=== PATIENT | female | born 1990 | race Caucasian/White ===

== ENCOUNTER → 2021-03-06 08:47 | Outpatient (CLI) | payer OTHER, SELFPAY ==
[2021-03-06 19:19] LABS: SARS-CoV-2 RNA PCR Negative
== END ==
PROVIDERS: PCP Nurse Practitioner Adult Health; Visit Provider Family Medicine
DX: R51.9 Headache, unspecified (principal); Z20.822 Contact with and (suspected) exposure to COVID-19
CPT/HCPCS: C9803; U0003; U0005

== ENCOUNTER → 2021-09-01 04:11 | Outpatient (CLI) | payer OTHER, SELFPAY ==
[2021-09-01 17:23] LABS: SARS-CoV-2 RNA PCR Negative
== END ==
PROVIDERS: PCP Nurse Practitioner Adult Health; Visit Provider Nurse Practitioner Adult Health
DX: R09.81 Nasal congestion (principal); Z20.822 Contact with and (suspected) exposure to COVID-19
CPT/HCPCS: C9803; U0003; U0005

== ENCOUNTER → 2021-09-12 09:46 | Outpatient (REF) | payer OTHER, SELFPAY | LOC: ANHLAB 09:46 | PROVIDERS: PCP Nurse Practitioner Adult Health; Visit Provider Nurse Practitioner | DX: D22.4 Melanocytic nevi of scalp and neck (principal) | CPT/HCPCS: 88305 ==

== ENCOUNTER 2021-09-20 22:02 | Emergency (ER) | payer OTHER, SELFPAY ==
[2021-09-20 22:05] VITALS: BP 126/80; PULSE 145; RESP 17; TEMP 37.1; O2SAT 99
--- NOTE | 2021-09-20 22:09 | PC.NURSE ---
Poison control called at this time. Viridiana, pharmacist on phone. Patient reports she took 6 - 0.5mg xanax pills approx 1 hour ago. Viridiana informed that ETOH is also known to be in patients system. Per pharmacist, her toxic dose would be 7.3mg. Pharmacist says to look for ataxia, slurred speech, mild hypotension, respiratory depression, INSTRUCTIONAL SPECIALIST depression. Pharmacist suggests symptomatic supportive care.
[2021-09-20 22:19] VITALS: RESP 14
--- NOTE | 2021-09-20 22:47 | ECG_ITS ---
Measurements Intervals [place] Rate: 111 P: 42 MO: 137 QRS: -22 QRSD: 90 T: 9 QT: 323 QTc: 439 Interpretive Statements SINUS TACHYCARDIA INCOMPLETE RIGHT BUNDLE BRANCH BLOCK BASELINE ARTIFACT- II, III, AVR, AVF, V3-V6 ABNORMAL ECG Electronically Signed On 09-21-2021 7:36:35 [employer] by Richard Carey D.O.
--- NOTE | 2021-09-20 22:55 | PC.NURSE ---
Pt's aunt took bottle of Xanax to take home.
[2021-09-20] MEDS: SODIUM CHLORIDE 0.9% IV 1,000 ML 999 ML IV CONT (22:57)
[2021-09-20 22:58] LABS: Basophils Percent Auto 0.3 % (0.2-1.2); Eosinophils Percent Auto 0.3 % (0-4.4); Hematocrit 40.4 % (37.0-47.0); Hemoglobin 14.3 g/dL (12.0-15.0); Immature Granulocyte Absolute 0.03 K/mm3 (0.00-0.031); Immature Granulocyte Percent A 0.3 % (0-0.5); Lymphocytes Percent Auto 8.4 % (18.3-44.2); Mean Corpuscular HGB Conc 35.4 g/dl (32-36); Mean Corpuscular Hemoglobin 32.1 pg (26-34); Mean Corpuscular Volume 90.6 fl (80-100); Mean Platelet Volume 9.6 fl (7.4-10.4); Monocytes Absolute Auto 0.5 K/mm3 (0.1-0.6); Monocytes Percent Auto 4.5 % (2.6-8.5); Neutrophils Absolute Auto 10.3 K/mm3 (1.3-6.7); Neutrophils Percent Auto 86.2 % (45.5-73.1); Platelet Count Result 266 k/mm3 (150-375); Red Blood Count 4.46 M/mm3 (4.2-5.4); Red Cell Distribution Width 12.1 % (11.5-14.5); White Blood Count 11.9 K/mm3 (4.5-10.0)
--- NOTE | 2021-09-20 23:05 | ED.OVERDOSE ---
HPI - Overdose General Chief Complaint: Overdose Stated Complaint: etoh Time Seen by Provider: 09/20/21 22:30 Source: patient and RN notes reviewed Mode of arrival: EMS Limitations: no limitations History of Present Illness HPI Narrative: This is a 31 year old female with history of anxiety who presents for evaluation of possible overdose. Patient reports she went drinking with coworkers at 1 pm this afternoon, and she only drank 2 margaritas. She states she was stopped by the police in [place] and they called her family to come get her. She states she does not know how she get from [place] to [place] today. She was brought to [facility] because patient took 3 mg of Xanax prior to arrival. She states she did not take 3 mg Xanax to kill herself, but she took it to calm herself. She states she asked to come to [facility] because she is tired and doesn't want to do this. She states she does not think she could commit suicide. She has history of cutting and an eating disorder. Related Data Home Medications Medication Instructions Recorded Confirmed alprazolam 0.5 mg tablet 0.5 mg PO BID tablet 09/12/21 fluoxetine 20 mg capsule 20 mg PO DAILY cap 09/12/21 linaclotide 290 mcg capsule 290 mcg PO DAILY cap 09/12/21 norgestimate-ethinyl estradiol 1 tablet PO DAILY tablet 09/12/21 0.18 mg/0.215mg/0.25mg-35 mcg(28)tablet Allergies Allergy/AdvReac Type Severity Reaction Status Date / Time procaine Allergy Severe LOC Verified 09/20/21 22:17 cefaclor Allergy Unknown Hives Verified 09/20/21 22:17 Review of Systems Review of Systems: All systems reviewed & are unremarkable except as noted in HPI and below PMFSH Past Medical History Medical History (Updated 09/21/21 @ 05:38 by Renetta Hurtado MD) Anxiety Skin neoplasm Surgical History Surgical History (Updated 09/20/21 @ 23:11 by Renetta Hurtado MD) H/O local excision of skin lesion Social History Social History (Updated 09/20/21 @ 23:12 by Renetta Hurtado MD) Smoking status: Never smoker Alcohol intake: current Alcohol use details: she states she normally does not drink alcohol. Substance use: never Substance use type: does not use Exam Const: General: alert Nutritional Appearance: thin Orientation/consciousness: patient oriented x3 HENMT: Head: normocephalic and atraumatic Mouth: Yes Normal oral and palatal mucosa present, Yes lip normal, Yes oropharynx normal and Yes moist mucous membranes Eyes: EOM: EOMs intact bilaterally Resp: Effort & Inspection: normal respiratory effort and no retractions Auscultation: clear to auscultation bilaterally Cardio: Rate: tachycardic Rhythm: regular rhythm Heart sounds: no murmurs GI: GI Palp: Yes Soft to palpation, No Tenderness to palpation present (GI) and No Guarding due to palpation present (GI) Auscultation: normal bowel sounds Skin: General skin exam: normal color Rashes: no rashes Neuro: General: patient oriented x3, moves all extremities and CN's II-XI intact bilaterally Extrem: General: normal to inspection Psych: Appearance: well kempt Mental Status: mental status grossly normal Attitude: cooperative Course Reevaluation(s) Reevaluation #1: Patient was evaluated by Edwina with Crisis and patient is stable for outpatient treatment and evaluation. She denies suicidal ideation and plan now. She has performed safety contract and she will be placed mason helper list to check on her. Date: 09/21/21 Time: 05:34 Vital Signs Vital signs: Vital Signs Temperature 98.7 F 09/20/21 22:05 Pulse Rate 145 H 09/20/21 22:05 Respiratory Rate 17 09/20/21 22:05 Blood Pressure 126/80 09/20/21 22:05 Pulse Oximetry 99 09/20/21 22:05 Temperature 98.7 F 09/20/21 22:05 Pulse Rate 108 H 09/21/21 05:47 Respiratory Rate 16 09/21/21 05:47 Blood Pressure 127/90 09/21/21 05:47 Pulse Oximetry 100 09/21/21 05:47 MDM - Overdose [place]
[2021-09-20 23:08] LABS: Add Urine Microscopic? NO; Appearance Urine Clear (Clear); Bilirubin Urine Negative (Negative); Blood Urine Negative (Negative); Color Urine Straw (Yellow); Glucose Urine UA Negative (Negative); Ketones Urine Negative (Negative); Leukocyte Esterase Ur Negative LEU/UL (Negative); Nitrate Urine Negative (Negative); Protein Urine Negative (Negative); Specific Grav Ur 1.005 (1.001-1.035); Urobilinogen Urine Negative mg/dL (<2.0)
[2021-09-20 23:08] LABS: Salicylate < 1.0 mg/dL (2-20)
[2021-09-20 23:09] LABS: Acetaminophen < 10 ug/mL (10-30); Alanine Aminotransferase 9 U/L (4-35); Albumin Level 4.1 g/dL (3.5-5.1); Alkaline Phosphatase 40 U/L (38-126); Anion Gap 8 mmol/L (8-16); Aspartate Amino Transferase 15 U/L (14-36); Bilirubin,Total 0.3 mg/dL (0.2-1.3); Blood Urea Nitrogen 4 mg/dL (7-17); Calcium 8.9 mg/dL (8.4-10.2); Carbon Dioxide 25 mmol/L (22-30); Chloride 113 mmol/L (98-107); Estimated CRCL calculation 69 ml/min; Estimated Glomerular Filt Rate > 60; Ethanol 161 mg/dL (<10); Glucose 104 mg/dL (65-110); Potassium 4.1 mmol/L (3.4-5.0); Sodium 146 mmol/L (137-145)
[2021-09-20 23:30] LABS: Amphetamine Screen Urine Negative (Negative); Barbiturate Screen Urine Negative (Negative); Benzodiazepines Screen Urine Positive (Negative); Cannabinoid Screen Urine Negative (Negative); Cocaine Screen Urine Negative (Negative); Methadone Screen Urine Negative (Negative); Opiate Screen Urine Negative (Negative); Phencyclidine Screen Urine Negative (Negative)
[2021-09-20 23:36] VITALS: BP 99/66; PULSE 100; RESP 20; O2SAT 99
[2021-09-20 23:56] VITALS: BP 102/76; PULSE 113; RESP 20; O2SAT 100
[2021-09-21] VITALS (7 sets, daily range): BP systolic 98–128; BP diastolic 62–90; PULSE 101–127; RESP 12–24; O2SAT 97–100
--- NOTE | 2021-09-21 00:21 | PC.NURSE ---
Mother requests to be called when pt wakes up and is less drowsy, or after Crisis evaluation. Xochilt Jiang .
[2021-09-21] MEDS: SODIUM CHLORIDE 0.9% IV 1,000 ML 999 ML IV CONT (00:27)
--- NOTE | 2021-09-21 00:53 | PC.NURSE ---
Per Terri at poison control reports they do not expect any worsening of pt condition and they are closing her case.
--- NOTE | 2021-09-21 01:34 | PC.NURSE ---
Pt belongings in ED locked cabinet, secured and labeled with pt sticker.
--- NOTE | 2021-09-21 03:25 | PC.NURSE ---
Pt mother contacted by phone per pt's request.
[2021-09-21 04:14] LABS: Ethanol 55 mg/dL (<10)
--- NOTE | 2021-09-21 04:21 | PC.NURSE ---
Pt medically cleared per BHUMIKA Hurtado. Called Crisis at [id number], spoke with Levy. tailings worker to be sent to ED for evaluation of patient.
--- NOTE | 2021-09-21 04:26 | PC.NURSE ---
Spoke with Edwina from Crisis, pt will be evaluated around 0500.
== END 2021-09-21 05:47 | disposition home or self-care (01) ==
PROVIDERS: Emergency Provider General Practice; PCP Nurse Practitioner Adult Health
DX: F41.9 Anxiety disorder, unspecified (principal); F10.929 Alcohol use, unspecified with intoxication, unspecified; Z85.828 Personal history of other malignant neoplasm of skin; R00.0 Tachycardia, unspecified; I45.10 Unspecified right bundle-branch block; Y90.6 Blood alcohol level of 120-199 mg/100 ml
CPT/HCPCS: 36415; 80053; 80307; 81003; 81025; 83735; 84443; 85025; 85610; 85730; 93005; 96360; 96361; 99284; J7030

== ENCOUNTER → 2021-10-31 02:25 | Outpatient (CLI) | payer OTHER, SELFPAY ==
[2021-11-01 20:49] LABS: SARS-CoV-2 RNA PCR Positive
== END ==
PROVIDERS: PCP Nurse Practitioner Adult Health; Visit Provider Nurse Practitioner Adult Health
DX: U07.1 COVID-19 (principal)
CPT/HCPCS: C9803; U0003; U0005

== ENCOUNTER 2022-11-01 10:05 | Emergency (ER) | payer OTHER, SELFPAY ==
--- NOTE | ~2022-11-01 | XR_ITS ---
EXAMINATION: XR chest 2V DATE: 11/01/2022 10:59 INDICATION: Chest pain. TECHNIQUE: Frontal and lateral views of the chest were obtained. COMPARISON: Chest 2 views 02/03/2015 FINDINGS: The chest demonstrates clear lungs without pneumonia, pleural effusion, or pneumothorax. Th e heart size is normal. IMPRESSION: 1. No acute cardiopulmonary disease. Reviewed, dictated and finalized at location A. ENCY MACHINE OPERATOR
--- NOTE | 2022-11-01 10:08 | ECG_ITS ---
Measurements Intervals [place] Rate: 78 P: 69 AK: 129 QRS: 85 QRSD: 93 T: 52 QT: 388 QTc: 443 Interpretive Statements SINUS RHYTHM INCOMPLETE RIGHT BUNDLE BRANCH BLOCK BASELINE ARTIFACT- I, II, III, AVR BORDERLINE ECG COMPARED TO ECG 09/20/2021 23:09:02 SINUS RHYTHM NOW PRESENT Electronically Signed On 11-01-2022 12:45:09 SHOE DRESSER by Richard Carey D.O.
[2022-11-01 10:16] VITALS: BP 124/93; PULSE 79; RESP 16; TEMP 36.6; O2SAT 100
[2022-11-01 10:44] LABS: Basophils Percent Auto 0.6 % (0.2-1.2); Eosinophils Percent Auto 0.6 % (0-4.4); Hematocrit 38.7 % (37.0-47.0); Hemoglobin 13.1 g/dL (12.0-15.0); Immature Granulocyte Absolute 0.01 K/mm3 (0.00-0.031); Immature Granulocyte Percent A 0.2 % (0-0.5); Lymphocytes Absolute Auto 0.85 K/mm3 (0.9-3.2); Lymphocytes Percent Auto 15.6 % (18.3-44.2); Mean Corpuscular HGB Conc 33.9 g/dl (32-36); Mean Corpuscular Hemoglobin 30.8 pg (26-34); Mean Corpuscular Volume 90.8 fl (80-100); Mean Platelet Volume 9.1 fl (7.4-10.4); Monocytes Absolute Auto 0.3 K/mm3 (0.1-0.6); Monocytes Percent Auto 5.3 % (2.6-8.5); Neutrophils Absolute Auto 4.2 K/mm3 (1.3-6.7); Neutrophils Percent Auto 77.7 % (45.5-73.1); Platelet Count Result 211 k/mm3 (150-375); Red Blood Count 4.26 M/mm3 (4.2-5.4); Red Cell Distribution Width 11.8 % (11.5-14.5); White Blood Count 5.5 K/mm3 (4.5-10.0)
[2022-11-01 10:54] LABS: Alanine Aminotransferase 12 U/L (6-35); Albumin Level 4.2 g/dL (3.5-5.1); Alkaline Phosphatase 38 U/L (38-126); Anion Gap 4 mmol/L (8-16); Aspartate Amino Transferase 19 U/L (14-36); Bilirubin,Total 0.6 mg/dL (0.2-1.3); Blood Urea Nitrogen 7 mg/dL (7-17); Calcium 8.7 mg/dL (8.4-10.2); Carbon Dioxide 27 mmol/L (22-30); Chloride 99 mmol/L (98-107); Estimated CRCL calculation 69 ml/min; Estimated Glomerular Filt Rate > 60; Glucose 83 mg/dL (65-110); Lipase 51 U/L (23-300); Potassium 3.5 mmol/L (3.4-5.0); Sodium 130 mmol/L (137-145)
[2022-11-01 10:56] LABS: INR 1.1; Prothrombin Time 13.6 Seconds (11.1-14.7)
[2022-11-01 10:57] LABS: Partial Thromboplastin Time 27.7 SECONDS (22.3-36.8)
[2022-11-01 11:06] LABS: Troponin I < 0.012 ng/mL (0.000-0.034)
[2022-11-01 13:04] VITALS: BP 123/81; PULSE 64; RESP 18; TEMP 36.1; O2SAT 99
[2022-11-01 13:42] LABS: Troponin I < 0.012 ng/mL (0.000-0.034)
--- NOTE | 2022-11-01 14:17 | ED.CHESTPAIN ---
HPI - Chest Pain General Chief Complaint: Chest Pain Stated Complaint: chest pain for a week Time Seen by Provider: 11/01/22 14:16 Source: patient Mode of arrival: ambulatory Limitations: no limitations History of Present Illness HPI narrative: Patient is a 32 yo female with a history of anxiety presenting to the ER for evaluation of chest pain. Patient reports pain is a soreness overlying the middle of the chest. Pain has been present for a week. Rated moderate in severity. Patient has been taking ibuprofen without improvement. Patient with family member who had bronchitis recently, no other sick contacts. She denies fever, chills, nausea, vomiting or diarrhea. She reports intermittent headache and nausea. Pt denies focal weakness or numbness. Pt denies dyspnea, lightheadedness. No syncope. Related Data Home Medications Medication Instructions Recorded Confirmed alprazolam 0.5 mg tablet 0.5 mg PO BID 09/12/21 fluoxetine 20 mg capsule 20 mg PO DAILY 09/12/21 linaclotide 290 mcg capsule 290 mcg PO DAILY 09/12/21 norgestimate-ethinyl estradiol 1 tablet PO DAILY 09/12/21 0.18 mg/0.215mg/0.25mg-35 mcg(28)tablet Allergies Allergy/AdvReac Type Severity Reaction Status Date / Time procaine Allergy Severe LOC Verified 09/20/21 22:17 cefaclor Allergy Unknown Hives Verified 09/20/21 22:17 Review of Systems Review of Systems: CONSTITUTIONAL: Denies fever, chills, or sweats. EYES: Denies visual changes, redness, or discharge. ENT: Denies rhinorrhea, congestion, sore throat, or otalgia. CARDIOVASCULAR: Reports chest pain without palpitations RESPIRATORY: Denies cough or dyspnea. GASTROINTESTINAL: Denies abdominal pain, nausea, vomiting, or diarrhea. GENITOURINARY: Denies dysuria or hematuria. SKIN: Denies rash or itching. MUSCULOSKELETAL: Denies back pain, joint pain, or myalgia. NEUROLOGIC: Denies headache, numbness, or weakness. PSYCHIATRIC: Patient with history of anxiety COUNT INCLUDES THE [facility] Past Medical History Medical History Anxiety Skin neoplasm Surgical History Surgical History H/O local excision of skin lesion Social History Social History Smoking status: Never smoker Alcohol intake: current Alcohol use details: she states she normally does not drink alcohol. Substance use: never Substance use type: does not use Exam Narrative: GENERAL: Awake, alert, conversant HEAD: Normocephalic, atraumatic. EYES: PERRLA and EOMI. ENT: Nares clear, no rhinorrhea or epistaxis. Mucous membranes moist. NECK: Supple. CHEST: No respiratory distress, breathing even and non labored; pt with reproducible tenderness, no crepitus or ecchymoses HEART: Regular rate, sinus rhythm ABDOMEN:Non distended, non tender EXTREMITIES: Normal range of motion. No edema. SKIN: Warm, dry, no rash. NEURO:No focal deficits. Alert and oriented x3 Course Vital Signs Vital signs: Vital Signs Temperature 36.6 C 11/01/22 10:16 Pulse Rate 79 11/01/22 10:16 Respiratory Rate 16 11/01/22 10:16 Blood Pressure 124/93 H 11/01/22 10:16 Pulse Oximetry 100 11/01/22 10:16 Oxygen Delivery Room Air 11/01/22 10:16 Temperature 36.7 C 11/01/22 15:00 Pulse Rate 76 11/01/22 15:00 Respiratory Rate 20 11/01/22 15:00 Blood Pressure 118/75 11/01/22 15:00 Pulse Oximetry 100 11/01/22 15:00 Oxygen Delivery Room Air 11/01/22 10:16 MDM - Chest Pain MDM Narrative Medical decision making narrative: Patient's EKG and labs are without significant high risk changes. Patient with reproducible chest pain on exam. She is well-appearing otherwise. Patient is on oral control thus a D-dimer was added. Cardiac risk factors reviewed. Patient is felt low risk for ACS and reasonable for further risk stratification testing as an outpatient. Pain was not sudden or
[2022-11-01 15:00] VITALS: BP 118/75; PULSE 76; RESP 20; TEMP 36.7; O2SAT 100
[2022-11-01 15:18] LABS: D Dimer 0.28 ug/mL (<0.48)
[2022-11-01 15:30] VITALS: BP 122/77; PULSE 72; RESP 16; TEMP 36.6; O2SAT 100
== END 2022-11-01 15:32 | disposition home or self-care (01) ==
PROVIDERS: Emergency Medicine; Emergency Provider Emergency Medicine
DX: R07.89 Other chest pain (principal); M94.0 Chondrocostal junction syndrome [Tietze]; F41.9 Anxiety disorder, unspecified; Z85.828 Personal history of other malignant neoplasm of skin; I45.10 Unspecified right bundle-branch block
CPT/HCPCS: 36415; 71046; 80053; 83690; 84484; 85025; 85380; 85610; 85730; 93005; 99284

== ENCOUNTER 2023-11-25 15:31 | Outpatient (CLI) | payer OTHER, SELFPAY ==
[2023-11-25 16:18] LABS: Hemoglobin 13.6 g/dL (12.0-15.0); Mean Corpuscular HGB Conc 33.2 g/dl (32-36); Mean Corpuscular Hemoglobin 29.8 pg (26-34); Mean Corpuscular Volume 89.9 fl (80-100); Mean Platelet Volume 9.6 fl (7.4-10.4); Platelet Count Result 238 k/mm3 (150-375); Red Blood Count 4.56 M/mm3 (4.2-5.4); Red Cell Distribution Width 12.4 % (11.5-14.5); White Blood Count 5.2 K/mm3 (4.5-10.0)
[2023-11-25 16:24] LABS: Alanine Aminotransferase 12 U/L (6-35); Albumin Level 4.3 g/dL (3.5-5.1); Alkaline Phosphatase 50 U/L (38-126); Anion Gap 8 mmol/L (8-16); Aspartate Amino Transferase 20 U/L (14-36); Bilirubin,Total 0.7 mg/dL (0.2-1.3); Blood Urea Nitrogen 7 mg/dL (7-17); Calcium 9.5 mg/dL (8.4-10.2); Carbon Dioxide 27 mmol/L (22-30); Chloride 103 mmol/L (98-107); Estimated Glomerular Filt Rate > 60; Glucose 75 mg/dL (65-110); Potassium 3.7 mmol/L (3.4-5.0); Sodium 138 mmol/L (137-145)
== END 2023-11-25 15:32 | disposition home or self-care (01) ==
LOC: ANHLAB 15:33
PROVIDERS: PCP Nurse Practitioner Family; Visit Provider Nurse Practitioner Family
DX: K59.09 Other constipation (principal)
CPT/HCPCS: 36415; 80053; 84443; 85027